=== PATIENT | female | born 1990 | race Caucasian/White ===

== ENCOUNTER → 2018-12-08 | Outpatient (CLI) | payer OTHER | END | disposition home or self-care (01) | LOC: LAB 14:22 | DX: Z00.00 Encounter for general adult medical examination without abnormal findings (principal) ==

== ENCOUNTER 2023-10-02 23:31 | Outpatient (CLI) | payer OTHER ==
[2023-10-02] MEDS ORDERED: PRENATAL + DHA1 EACH PO (23:45)
[2023-10-03] LABS: HEMATOCRIT 27.2 % (36.0-45.00); HEMOGLOBIN 9.4 g/dL (12.0-15.00); MEAN CELL VOLUME 81.1 fL (80.00-100.00); MEAN CORPUSCULAR HGB CONC 34.6 g/dl (32.0-36.0); PH,URINE 7.5 (5.0-8.0); PLATELET COUNT 209 K/uL (150-450); RED BLOOD COUNT 3.36 M/uL (4.00-6.00); RED CELL DISTRIBUTION WIDTH 14.8 % (11.5-14.5); URINE APPEARANCE Clear; URINE BILIRRUBIN Negative (NEGATIVE); URINE BLOOD Negative; URINE COLOR Yellow; URINE GLUCOSE Negative (NEGATIVE); URINE LEUKOCYTE Small; URINE NITRATE Negative; URINE PROTEIN Negative (NEGATIVE)
[2023-10-03 00:04] LABS: URINE EPITHELIAL CELLS 68.3 uL (0.0-38.8); URINE RBC 2.1 uL (0.0-20.8); URINE WBC 63.9 uL (0.0-23.2)
== END 2023-10-03 11:10 | disposition home or self-care (01) ==
LOC: OBS/DEL 23:31
PROVIDERS: Obstetrics & Gynecology; ATTEND Obstetrics & Gynecology
DX: O23.33 Infections of other parts of urinary tract in pregnancy, third trimester (principal); N39.0 Urinary tract infection, site not specified; Z3A.34 34 weeks gestation of pregnancy

== ENCOUNTER 2023-10-25 11:22 | Inpatient (IN) | payer OTHER ==
[~2023-10-25] VITALS: Ht 154.9 cm; Wt 81.6 kg
[~2023-10-25 11:22] MED LIST: PRENATAL + DHA1 EACH PO
[2023-10-28 03:50] LABS: ABG PH 7.369 (7.35-7.45); ABG PO2 29.1 mmHg (80-100); ABG pCO2 39.5 mmHg (35-45); BASE EXCESS -2.7 mmol/l; SaO2 51.9 %
[2023-10-28 03:51] LABS: BICARBONATE 22.3 mmol/l (23-25); Tco2 23.5 mmol/l; o2 21 %
[2023-10-28 06:54] LABS: HEMATOCRIT 30.5 % (36.0-45.00); HEMOGLOBIN 10.2 g/dL (12.0-15.00); MEAN CELL VOLUME 80.2 fL (80.00-100.00); MEAN CORPUSCULAR HEMOGLOBIN 26.9 pg (27.00-32.0); MEAN CORPUSCULAR HGB CONC 33.5 g/dl (32.0-36.0); PLATELET COUNT 196 K/uL (150-450); RED BLOOD COUNT 3.81 M/uL (4.00-6.00); RED CELL DISTRIBUTION WIDTH 16.3 % (11.5-14.5)
== END 2023-10-30 12:36 | disposition home or self-care (01) | DRG 807 ==
LOC: LDR 10-27 21:45 → OB/GYN 10-27 21:45
PROVIDERS: ADMIT Obstetrics & Gynecology; ATTEND Obstetrics & Gynecology
PROC: 4A1HXCZ Monitoring of Products of Conception, Cardiac Rate, External Approach (ICD-10-PCS; 2023-10-27)
PROC: 10E0XZZ Delivery of Products of Conception, External Approach (ICD-10-PCS; principal; 2023-10-28)
DX: O80 Encounter for full-term uncomplicated delivery (principal); Z37.0 Single live birth; Z3A.37 37 weeks gestation of pregnancy; Z20.822 Contact with and (suspected) exposure to COVID-19

== ENCOUNTER 2023-10-27 05:59 | Outpatient (CLI) | payer OTHER ==
[2023-10-27] MEDS ORDERED: RINGERS SOLUTION,LACTATED 1,000 ML IV SCH (06:30)
[2023-10-27 06:44] LABS: PH,URINE 6.5 (5.0-8.0); URINE APPEARANCE Clear; URINE BILIRRUBIN Negative (NEGATIVE); URINE BLOOD Negative; URINE COLOR Yellow; URINE GLUCOSE Negative (NEGATIVE); URINE LEUKOCYTE Negative; URINE NITRATE Negative; URINE PROTEIN Negative (NEGATIVE); URINE UROBILINOGEN 0.2 E.U./dl
[2023-10-27 06:48] LABS: URINE BACTERIA 167.5 uL (0.0-1933); URINE EPITHELIAL CELLS 12.4 uL (0.0-38.8); URINE WBC 5.7 uL (0.0-23.2)
[2023-10-27 06:53] LABS: HEMATOCRIT 29.5 % (36.0-45.00); HEMOGLOBIN 9.9 g/dL (12.0-15.00); MEAN CELL VOLUME 80.2 fL (80.00-100.00); MEAN CORPUSCULAR HEMOGLOBIN 27.1 pg (27.00-32.0); MEAN CORPUSCULAR HGB CONC 33.8 g/dl (32.0-36.0); PLATELET COUNT 194 K/uL (150-450); RED BLOOD COUNT 3.67 M/uL (4.00-6.00); RED CELL DISTRIBUTION WIDTH 16.2 % (11.5-14.5)
[2023-10-27 06:54] LABS: URINE RBC 0.8 uL (0.0-20.8)
[2023-10-27 07:21] LABS: INR < 0.93; PARTIAL THROMBOPLASTIN TIME 20.8 SECONDS (22.0-34.0); PROTHROMBIN TIME 9.5 SECONDS (9.0-11.5)
== END 2023-10-27 13:14 | disposition still patient (30) ==
LOC: OBS/DEL 05:59
PROVIDERS: ATTEND Obstetrics & Gynecology
DX: O26.893 Other specified pregnancy related conditions, third trimester (principal)

== ENCOUNTER 2025-04-24 15:30 | Outpatient (CLI) | payer OTHER | END 2025-04-24 15:31 | disposition home or self-care (01) | LOC: PRENATAL 15:30 | PROVIDERS: ATTEND Obstetrics & Gynecology Maternal & Fetal Medicine | DX: O36.80X0 Pregnancy with inconclusive fetal viability, not applicable or unspecified (principal); Z36.82 Encounter for antenatal screening for nuchal translucency; Z14.8 Genetic carrier of other disease; O09.529 Supervision of elderly multigravida, unspecified trimester; Z3A.14 14 weeks gestation of pregnancy ==

== ENCOUNTER 2025-06-07 08:00 | Outpatient (CLI) | payer OTHER | END 2025-06-07 08:04 | disposition home or self-care (01) | LOC: PRENATAL 08:00 | PROVIDERS: ATTEND Obstetrics & Gynecology Maternal & Fetal Medicine | DX: O44.00 Complete placenta previa NOS or without hemorrhage, unspecified trimester (principal); O09.529 Supervision of elderly multigravida, unspecified trimester; Z3A.20 20 weeks gestation of pregnancy ==

== ENCOUNTER 2025-08-26 09:33 | Outpatient (CLI) | payer OTHER ==
[2025-08-26 09:10] VITALS: BP 90/59
[2025-08-26] MEDS ORDERED: RINGERS SOLUTION,LACTATED 1,000 ML IV SCH (09:45)
[2025-08-26] MEDS ORDERED: BETAMETHASONE ACETATE,SOD PHOS 30 MG/5 ML ML IM NR (10:00)
[2025-08-26 10:42] LABS: BASO % 0.2 % (0.1-1.2); EOS # 0.07 (0.04-0.54); EOS % 0.5 % (0.7-7.0); LYMPH # 1.98 (1.18-3.74); LYMPH % 15.4 % (19.3-53.1); MEAN PLATELET VOLUME 10.80 fl (9.4-12.4); MONO # 0.78 (0.24-0.82); MONO % 6.1 % (4.7-12.5); NEUT # 9.75 (1.56-6.13); NEUT % 75.6 % (34.0-71.1); RED CELL DISTRIBUTION WIDTH 16.0 % (11.6-14.4)
[2025-08-26 10:43] LABS: URINE APPEARANCE Turbid; URINE BILIRRUBIN Negative (NEGATIVE); URINE BLOOD Large; URINE COLOR Yellow; URINE KETONE Trace (NEGATIVE); URINE LEUKOCYTE Large; URINE NITRATE Negative; URINE PROTEIN 30 (NEGATIVE); URINE UROBILINOGEN 1.0 E.U./dl
[2025-08-26 10:46] LABS: URINE RBC 15.8 uL (0.0-20.8); URINE WBC 500.4 uL (0.0-23.2)
[2025-08-26 11:06] LABS: INR < 0.93
[2025-08-26 11:39] LABS: URINE BACTERIA > 9821.5 uL (0.0-1933); URINE CAST 0.43 uL (0.0-1.40); URINE EPITHELIAL CELLS > 201.7 uL (0.0-38.8); URINE GLUCOSE 100 MG/DL (NEGATIVE)
[2025-08-26 11:55] LABS: URINE YEAST MODERATE /hpf
[2025-08-26 15:13] VITALS: BP 112/66
[2025-08-26 20:09] VITALS: BP 117/71
[2025-08-26 23:20] VITALS: BP 103/58; O2SAT 98
[2025-08-27 03:27] VITALS: BP 102/60
[2025-08-27 06:15] VITALS: BP 116/67; O2SAT 97
[2025-08-27] MEDS ORDERED: EPOETIN ALFA 10,000 UNITS/ML VIAL SUBCUTANEO SCH (08:44)
[2025-08-27] MEDS ORDERED: EPOETIN ALFA-EPBX 10,000 UNIT/ML VIAL (Retacrit) SUBCUTANEO SCH (09:00)
[2025-08-27] MEDS ORDERED: BETAMETHASONE ACETATE,SOD PHOS 30 MG/5 ML ML IM NR (10:00)
[2025-08-27 10:23] VITALS: BP 116/62
== END 2025-08-27 10:35 | disposition home or self-care (01) ==
LOC: OBS/DEL 09:33
PROVIDERS: Obstetrics & Gynecology; ATTEND Obstetrics & Gynecology
DX: O46.93 Antepartum hemorrhage, unspecified, third trimester (principal); O26.849 Uterine size-date discrepancy, unspecified trimester; O26.859 Spotting complicating pregnancy, unspecified trimester; O09.529 Supervision of elderly multigravida, unspecified trimester; O99.019 Anemia complicating pregnancy, unspecified trimester; O32.9XX0 Maternal care for malpresentation of fetus, unspecified, not applicable or unspecified; Z3A.33 33 weeks gestation of pregnancy

== ENCOUNTER 2025-09-14 22:32 | Inpatient (IN) | payer OTHER ==
[~2025-09-14] VITALS: Ht 154.9 cm; Wt 81.6 kg
[2025-09-14 22:05] VITALS: BP 122/78
[2025-09-14] MEDS ORDERED: IRON325 MG PO (22:34)
[2025-09-14] MEDS ORDERED: RINGERS SOLUTION,LACTATED 1,000 ML IV SCH (22:45)
[2025-09-14 23:16] VITALS: BP 109/57
[2025-09-14 23:24] LABS: BASO % 0.3 % (0.1-1.2); EOS # 0.04 (0.04-0.54); EOS % 0.4 % (0.7-7.0); LYMPH # 2.34 (1.18-3.74); LYMPH % 20.5 % (19.3-53.1); MEAN PLATELET VOLUME 10.60 fl (9.4-12.4); MONO # 1.02 (0.24-0.82); MONO % 9.0 % (4.7-12.5); NEUT # 7.84 (1.56-6.13); NEUT % 68.7 % (34.0-71.1); RED CELL DISTRIBUTION WIDTH 17.9 % (11.6-14.4)
[2025-09-14 23:25] LABS: URINE APPEARANCE Turbid; URINE BILIRRUBIN Negative (NEGATIVE); URINE BLOOD Large; URINE COLOR Orange; URINE KETONE Trace (NEGATIVE); URINE LEUKOCYTE Large; URINE NITRATE Negative; URINE UROBILINOGEN 1.0 E.U./dl
[2025-09-14 23:28] LABS: URINE CAST 2.93 uL (0.0-1.40); URINE RBC 78.7 uL (0.0-20.8); URINE WBC 667.2 uL (0.0-23.2)
[2025-09-14 23:37] LABS: INR 0.94
[2025-09-14 23:56] LABS: URINE BACTERIA > 9821.5 uL (0.0-1933); URINE EPITHELIAL CELLS > 201.7 uL (0.0-38.8); URINE GLUCOSE 100 MG/DL (NEGATIVE); URINE PROTEIN 100 (NEGATIVE)
[2025-09-15] MEDS ORDERED: CEFAZOLIN SODIUM 1,000 MG VIAL ONE (00:23)
[2025-09-15] MEDS ORDERED: CEFAZOLIN SODIUM 1,000 MG VIAL IV SCH ×2 (00:45→06:00)
[2025-09-15 04:37] VITALS: BP 119/77
[2025-09-15 07:09] VITALS: BP 90/53
[2025-09-15 10:45] VITALS: BP 91/55
[2025-09-15 15:10] VITALS: BP 95/56
[2025-09-15 16:00] VITALS: BP 122/78; BP 95/56
[2025-09-15] MEDS ORDERED: SOD FERRIC GLUC COMPLX/SUCROSE 125 MG in 0.9 % SODIUM CHLORIDE 100 ML IV SCH (16:54)
[2025-09-15] MEDS ORDERED: SOD FERRIC GLUC COMPLX/SUCROSE 62.5 MG/5 ML AMPUL IV ONE (17:11)
[2025-09-15 23:17] VITALS: BP 104/69
[2025-09-16 03:27] VITALS: BP 91/53
[2025-09-16] MEDS ORDERED: BETAMETHASONE ACETATE,SOD PHOS 30 MG/5 ML ML IM STA (05:09)
[2025-09-16] MEDS ORDERED: BETAMETHASONE ACETATE,SOD PHOS 30 MG/5 ML ML IM ONE (05:15)
[2025-09-16] MEDS ORDERED: NIFEDIPINE 10 MG CAPSULE PO PRN (05:15)
[2025-09-16] MEDS ORDERED: NIFEDIPINE 10 MG CAPSULE PO ONE (05:15)
[2025-09-16 06:11] VITALS: BP 101/64; O2SAT 97
[2025-09-16] MEDS ORDERED: PNV,CALCIUM 72/IRON/FOLIC ACID 1 TAB TABLET PO SCH (09:00)
[2025-09-16] MEDS ORDERED: ACETAMINOPHEN 500 MG GEL..CAP PO ONE (10:30)
[2025-09-16 11:30] VITALS: BP 103/67
[2025-09-16 15:07] VITALS: BP 106/63
== END 2025-09-16 17:13 | disposition home or self-care (01) | DRG 833 ==
LOC: OBS/DEL 22:32 → LDR 09-15 17:15
PROVIDERS: Obstetrics & Gynecology; ADMIT Obstetrics & Gynecology; ATTEND Obstetrics & Gynecology
PROC: BY4FZZZ Ultrasonography of Third Trimester, Single Fetus (ICD-10-PCS; principal; 2025-09-15)
PROC: 4A1HXCZ Monitoring of Products of Conception, Cardiac Rate, External Approach (ICD-10-PCS; 2025-09-15)
DX: O44.03 Complete placenta previa NOS or without hemorrhage, third trimester (principal); O99.013 Anemia complicating pregnancy, third trimester; D64.9 Anemia, unspecified; Z3A.34 34 weeks gestation of pregnancy

== ENCOUNTER 2025-09-19 08:25 | Outpatient (CLI) | payer OTHER ==
[~2025-09-19 08:25] MED LIST changes: +IRON325 MG PO
== END 2025-09-19 08:26 | disposition home or self-care (01) ==
LOC: PRENATAL 08:25
PROVIDERS: ATTEND Obstetrics & Gynecology Maternal & Fetal Medicine
DX: O26.843 Uterine size-date discrepancy, third trimester (principal); O36.8130 Decreased fetal movements, third trimester, not applicable or unspecified; O44.03 Complete placenta previa NOS or without hemorrhage, third trimester; O09.523 Supervision of elderly multigravida, third trimester; O32.9XX0 Maternal care for malpresentation of fetus, unspecified, not applicable or unspecified; O99.013 Anemia complicating pregnancy, third trimester; Z3A.35 35 weeks gestation of pregnancy

== ENCOUNTER 2025-09-24 02:37 | Inpatient (IN) | payer OTHER ==
[~2025-09-24] VITALS: Ht 154.9 cm; Wt 2.7 kg
[2025-09-24 02:02] VITALS: BP 110/64; O2SAT 99
[2025-09-24] MEDS ORDERED: RINGERS SOLUTION,LACTATED 1,000 ML IV SCH (02:45)
[2025-09-24] MEDS ORDERED: TERBUTALINE SULFATE 1 MG/ML AMPUL SUBCUTANEO SCH (02:45)
[2025-09-24 03:26] LABS: URINE APPEARANCE Clear; URINE BILIRRUBIN Negative (NEGATIVE); URINE BLOOD Large; URINE COLOR Yellow; URINE GLUCOSE Negative (NEGATIVE); URINE KETONE Negative (NEGATIVE); URINE LEUKOCYTE Large; URINE NITRATE Negative; URINE PROTEIN Trace (NEGATIVE); URINE UROBILINOGEN 0.2 E.U./dl
[2025-09-24 03:26] LABS: BASO % 0.3 % (0.1-1.2); EOS # 0.05 (0.04-0.54); EOS % 0.5 % (0.7-7.0); LYMPH # 2.42 (1.18-3.74); LYMPH % 21.8 % (19.3-53.1); MEAN PLATELET VOLUME 10.70 fl (9.4-12.4); MONO # 1.07 (0.24-0.82); MONO % 9.6 % (4.7-12.5); NEUT # 7.36 (1.56-6.13); NEUT % 66.2 % (34.0-71.1); RED CELL DISTRIBUTION WIDTH 18.4 % (11.6-14.4)
[2025-09-24 03:30] LABS: URINE BACTERIA 1157.8 uL (0.0-1933); URINE EPITHELIAL CELLS 51.5 uL (0.0-38.8); URINE RBC 1213.3 uL (0.0-20.8); URINE WBC 298.7 uL (0.0-23.2)
[2025-09-24 03:40] LABS: URINE CAST 0.43 uL (0.0-1.40)
[2025-09-24 04:09] LABS: INR < 0.93
[2025-09-24] MEDS ORDERED: BETAMETHASONE ACETATE,SOD PHOS 30 MG/5 ML ML IM ONE (05:30)
[2025-09-24] MEDS ORDERED: CEFAZOLIN SODIUM 1,000 MG VIAL IV SCH (06:00)
[2025-09-24 07:20] VITALS: BP 124/67
[2025-09-24 11:09] VITALS: BP 102/54
[2025-09-24] MEDS ORDERED: OXYTOCIN 10 UNITS/ML VIAL IV ONE (15:00)
[2025-09-24] MEDS ORDERED: ERYTHROMYCIN BASE OPHT 1GM EACH TUBE OP ONE (15:00)
[2025-09-24 16:07] LABS: BASO % 0.1 % (0.1-1.2); EOS # 0.00 (0.04-0.54); EOS % 0.0 % (0.7-7.0); LYMPH # 1.15 (1.18-3.74); LYMPH % 9.3 % (19.3-53.1); MEAN PLATELET VOLUME 10.70 fl (9.4-12.4); MONO # 0.29 (0.24-0.82); MONO % 2.3 % (4.7-12.5); NEUT # 10.70 (1.56-6.13); NEUT % 86.5 % (34.0-71.1); RED CELL DISTRIBUTION WIDTH 18.4 % (11.6-14.4)
[2025-09-24] MEDS ORDERED: MORPHINE SULFATE 4 MG/ML VIAL IV SCH (17:00)
[2025-09-24 18:40] VITALS: BP 117/73
[2025-09-24 22:00] LABS: BASO % 0.1 % (0.1-1.2); EOS # 0.00 (0.04-0.54); EOS % 0.0 % (0.7-7.0); LYMPH # 1.06 (1.18-3.74); LYMPH % 4.9 % (19.3-53.1); MEAN PLATELET VOLUME 10.20 fl (9.4-12.4); MONO # 1.38 (0.24-0.82); MONO % 6.4 % (4.7-12.5); NEUT # 18.86 (1.56-6.13); NEUT % 87.6 % (34.0-71.1); RED CELL DISTRIBUTION WIDTH 18.5 % (11.6-14.4)
[2025-09-25 00:33] VITALS: BP 104/64
[2025-09-25] MEDS ORDERED: KETOROLAC TROMETHAMINE 60 MG VIAL IM NR (03:00)
[2025-09-25] MEDS ORDERED: OxyCODONE HCL 5 MG TABLET (ROXICODONE) PO SCH (05:00)
[2025-09-25] MEDS ORDERED: BETAMETHASONE ACETATE,SOD PHOS 30 MG/5 ML ML IM NR (05:30)
[2025-09-25 05:45] VITALS: BP 116/69
[2025-09-25 07:56] VITALS: BP 103/69
[2025-09-25] MEDS ORDERED: SIMETHICONE 125 MG CAPSULE PO SCH (09:00)
[2025-09-25] MEDS ORDERED: PNV,CALCIUM 72/IRON/FOLIC ACID 1 TAB TABLET PO SCH (09:00)
[2025-09-25] MEDS ORDERED: DOCUSATE SODIUM 100MG CAP PO SCH (09:00)
[2025-09-25] MEDS ORDERED: ERYTHROMYCIN BASE OPHT 1GM EACH TUBE OP ONE (14:30)
[2025-09-25] MEDS ORDERED: CHLORHEXIDINE GLUCONATE 120 ML BOTTLE TOP ONE (14:30)
[2025-09-25] MEDS ORDERED: OXYTOCIN 10 UNITS/ML VIAL IV ONE (14:30)
[2025-09-25 16:15] VITALS: BP 113/69
[2025-09-26] VITALS: BP 95/60
[2025-09-26 08:00] VITALS: BP 98/60
[2025-09-26 16:28] VITALS: BP 110/61
[2025-09-27 00:15] VITALS: BP 96/62
[2025-09-27 08:45] VITALS: BP 118/72
[2025-10-02] MEDS ORDERED: DIPHENHYDRAMINE HCL 50 MG/ML VIAL 1ML ONE (12:43)
== END 2025-09-27 13:45 | disposition home or self-care (01) | DRG 786 ==
LOC: LDR → OB/GYN 02:37 → LDR 02:37 → O/R 11:15 → LDR 11:16 → O/R 14:24 → OB/GYN 16:47
PROVIDERS: Obstetrics & Gynecology; ADMIT Obstetrics & Gynecology; ATTEND Obstetrics & Gynecology
PROC: BY4FZZZ Ultrasonography of Third Trimester, Single Fetus (ICD-10-PCS; 2025-09-24)
PROC: 4A1HXCZ Monitoring of Products of Conception, Cardiac Rate, External Approach (ICD-10-PCS; 2025-09-24)
PROC: 10D00Z1 Extraction of Products of Conception, Low, Open Approach (ICD-10-PCS; principal; 2025-09-24 13:00)
DX: O44.13 Complete placenta previa with hemorrhage, third trimester (principal); O60.14X0 Preterm labor third trimester with preterm delivery third trimester, not applicable or unspecified; O32.2XX0 Maternal care for transverse and oblique lie, not applicable or unspecified; Z3A.35 35 weeks gestation of pregnancy; Z37.0 Single live birth; O42.02 Full-term premature rupture of membranes, onset of labor within 24 hours of rupture